=== PATIENT | female | born 1965 | race Caucasian/White ===

== ENCOUNTER 2024-11-04 17:59 | Emergency (ER) | payer MEDICAID ==
[~2024-11-04] VITALS: Ht 167.6 cm; Wt 77.0 kg
[2024-11-04 18:09] VITALS: O2SAT 98
[2024-11-04 18:47] LABS: BASOPHILS % 0.8 % (0.0-2.0); EOSINOPHILS % 4.2 % (0.0-5.0); HEMATOCRIT. 27.4 % (36.0-48.0); LYMPHOCYTES % 7.3 % (20.0-50.0); MEAN CORPUSCULAR HEMOGLOBIN 29.9 pg (28.0-32.0); MEAN CORPUSCULAR VOLUME 90.7 fL (81.0-99.0); MEAN PLATELET VOLUME 9.2 fl (7.4-10.4); MONOCYTES % 9.3 % (2.0-8.0); NEUTROPHILS % 78.4 % (40.0-76.0); PLATELET 185 x1000/uL (130-400); RED BLOOD CELL COUNT 3.02 mill/uL (4.2-5.4); RED CELL DISTRIBUTION WIDTH 23.7 % (11.6-14.6); WHITE BLOOD COUNT 6.9 x1000/uL (4.5-11.0)
[2024-11-04] MEDS: ONDANSETRON HCL 4MG/2ML INJ IV STA (18:49)
[2024-11-04 18:50] LABS: ADD RBC MORPHOLOGY YES; DIFFERENTIAL COMMENT 1
[2024-11-04] MEDS: MORPHINE SULFATE 4 MG/ML INJ (FOR IV/IM USE) IV STA (18:50)
[2024-11-04 18:56] LABS: CHLORIDE 89 mEq/L (98-107); POTASSIUM 5.6 mEq/L (3.5-5.1); SODIUM 132 mEq/L (136-145)
[2024-11-04 18:57] LABS: CARBON DIOXIDE 30 mEq/L (21-32); PROTHROMBIN TIME 10.6 sec (9.6-11.0)
[2024-11-04 18:58] LABS: CALCIUM 9.3 mg/dL (8.7-10.4)
[2024-11-04 19:02] LABS: GLUCOSE 143 mg/dL (70-105); TROPONIN I HIGH SENSITIVITY 23 ng/L (3.0-34); UREA NITROGEN BLOOD 56 mg/dL (9-23)
[2024-11-04 19:03] LABS: ANISOCYTOSIS 2+; PLATELET ESTIMATE NORMAL
[2024-11-04 19:21] LABS: CREATININE 6.9 mg/dL (0.6-1.0)
[2024-11-04] MEDS ORDERED: CALCIUM GLUCONATE 1,000 MG in DEXT 5% WATER 100 ML IV ONE (19:45)
[2024-11-04] MEDS: DEXTROSE 50% WATER 50ML SYRINGE IV ONE (20:14)
[2024-11-04] MEDS: SODIUM BICARBONATE 8.4% 50MEQ/50ML SYR IV ONE (20:14)
[2024-11-04] MEDS: CALCIUM GLUCONATE 1GM PREMIX 100 ML IV NR (20:14)
[2024-11-04] MEDS: INSULIN REGULAR (HUMULIN R) 1000UNITS/10ML VIAL IV ONE (20:18)
[2024-11-04] MEDS: ASPIRIN 81MG TABLET PO ONE (20:32)
[2024-11-04 22:15] VITALS: BP 126/60; PULSE 88; RESP 15; TEMP 36.8; O2SAT 95
== END 2024-11-04 23:04 | disposition left against medical advice (07) ==
LOC: ER 17:59 → EDBD 17:59 → ER 23:04
DX: R51.9 Headache, unspecified (principal); I12.9 Hypertensive chronic kidney disease with stage 1 through stage 4 chronic kidney disease, or unspecified chronic kidney disease; E11.22 Type 2 diabetes mellitus with diabetic chronic kidney disease; N18.9 Chronic kidney disease, unspecified; E87.5 Hyperkalemia
CPT/HCPCS: 80048; 85025; 85610; 84484; 36415; 71045; 70450; 93005; 96365; 96375; 99291; Z7610; J0610; J1815; J2405; J3490; J2270; J7060